=== PATIENT | male | born 1960 | race Caucasian/White ===

== ENCOUNTER 2016-12-03 04:38 | Emergency (ER) | payer BC ==
[~2016-12-03] VITALS: Ht 170.2 cm; Wt 78.0 kg
[~2016-12-03 04:38] MED LIST: LOSARTAN
[2016-12-03 04:44] VITALS: Ht 170.2 cm; Wt 78.0 kg
--- NOTE | 2016-12-03 06:28 | ERD ---
ER Documentation Chief Complaint Date/Time DATE: 12/03/16 TIME: 06:05 Chief Complaint left sided numbness x 3 hours. also c/o body rash HPI 56-year-old male with a history of hypertension, gastritis and hiatal hernia ambulatory to the ED complaining of a 3 day history of intermittent, red, raised , pruritic rash which is worse in the evenings. His been taking Benadryl which relieved the symptoms and he seems to be good during the day but around 5:55 in the evening the symptoms recur. No new antigen exposure. This morning at 2 AM he again began to have the rash and 50-20 minutes after taking Benadryl he began to experience numbness to his left hand and forearm which resolved by the time he arrived in the ED. No headache or neck pain. No other focal weakness or numbness. Denies chest pain or palpitations. No shortness of breath or cough. No abdominal pain, nausea vomiting. No recent travel or ill contacts. No URI symptoms or rhinorrhea. No fevers or chills. ROS All systems reviewed and are negative except as per history of present illness. Medications Home Meds Active Scripts Hydroxyzine Hcl* (Atarax*) 50 Mg Tab, 50 MG PO Q8H Y for ITCHING, #15 TAB Prov:SERGIO DEWEY MD 12/03/16 Prednisone* (Prednisone*) 20 Mg Tab, 40 MG PO DAILY for 3 Days, TAB With food or milk Prov:SERGIO DEWEY MD 12/03/16 Reported Medications [Losartan] No Conflict Check 10/04/16 Allergies Allergies: Coded Allergies: No Known Allergy (Unverified , 12/03/16) PMhx/Soc Reviewed in chart. As per HPI Medical and Surgical Hx: pt denies Surgical Hx History of Surgery: No Anesthesia Reaction: No Hx Neurological Disorder: No Hx Respiratory Disorders: No Hx Cardiac Disorders: Yes (HYPERTENSION) Hx Psychiatric Problems: No Hx Miscellaneous Medical Probl: Yes (Gastritis/GERD, hiatal hernia) Hx Alcohol Use: Yes (ONCE A WEEK) Hx Substance Use: No Hx Tobacco Use: No Smoking Status: Never smoker FmHx No stroke or cancer. Physical Exam Vitals Vital Signs Date Time Temp Pulse Resp B/P Pulse Ox O2 Delivery O2 Flow Rate FiO2 12/03/16 07:29 98.2 72 19 122/74 100 Room Air 2/11/17 05:10 87 18 145/88 100 Room Air 12/03/16 04:44 98.1 101 20 164/90 100 Physical Exam GENERAL: Alert, well-appearing, no acute distress. SKIN: Warm, dry. Light, resolving urticarial rash. No lesions on the hands or feet. No intraoral lesions. No petechiae. No ecchymoses or bruising. HEAD: Atraumatic NECK: Supple, no tenderness, full range of motion. No lymphadenopathy. Carotids 2+ bilaterally without bruits. No stridor. EYES: Pupils are equal, round and reactive to light, extraocular movements are intact, Conjunctiva, not injected, sclera anicteric. ENT: Mucous membranes are moist. Pharynx is clear without erythema or exudate. No uvular lip swelling. No intraoral lesions. CARDIOVASCULAR: Regular rate and rhythm, S1, S2, No murmurs, rubs or gallops. No edema Pulses are 4+ in all extremities. RESPIRATORY: Breath sounds are equal bilaterally. No rales, rhonchi or wheezes. CHEST WALL: No tenderness or deformity. No ecchymosis or bruising GASTROINTESTINAL: Bowel sounds present, nondistended. Soft, nontender, no rebound or guarding. No masses or abnormal pulsations. BACK: No spinal tenderness or paraspinal muscle spasm. No costovertebral angle tenderness. MUSCULOSKELETAL: Normal ROM, no deformity. No calf swelling or tenderness, no edema. No lesions on palms or soles. NEUROLOGIC: Alert and oriented. CN II-XII intact. No focal neurological deficit observed. Normal speech. LYMPHATICS: No lymphadenopathy or lymphedema. PSYCHIATRIC: Cooperative. Appropriate mood and affect. Patient does not appear anxious or depressed. Result Diagram: 12/03/16 0500 12/03/16 0500 Results 24 hrs Laboratory Tests Test 12/03/16 05:00 Alanine Aminotransferase (ALT/SGPT) 36IU/L Albumin 4.1g/dl Albumin/Globulin Ratio 1.20 Alkaline Phosphatase 145IU/L Anion Gap 17 Aspartate Amino Transf (AST/SGOT) 37IU/L Basophils # 0.010^3/ul Basophils % 0.7% Blood Urea Nitrogen 19mg/dl Calcium Level 8.9mg/dl Carbon Dioxide Level 26mmol/L Chloride Level 101mmol/L Creatinine 0.86mg/dl Direct Bilirubin 0.00mg/dl Eosinophils # 0.210^3/ul Eosinophils % 2.7% Globulin 3.40g/dl Glucose Level 104mg/dl Hematocrit 44.9% Hemoglobin 14.9g/dl Indirect Bilirubin 0.0mg/dl Lymphocytes # 2.410^3/ul Lymphocytes % 35.4% Mean Corpuscular Hemoglobin 29.2pg Mean Corpuscular Hemoglobin Concent 33.2g/dl Mean Corpuscular Volume 88.0fl Mean Platelet Volume 9.2fl Monocytes # 0.810^3/ul Monocytes % 11.1% Neutrophils # 3.410^3/ul Neutrophils % 50.1% Nucleated Red Blood Cells # 0.010^3/ul Nucleated Red Blood Cells % 0.0/100WBC Platelet Count 99288^3/UL Potassium Level 4.0mmol/L Red Blood Count 5.1010^6/ul Red Cell Distribution Width 14.1% Sodium Level 140mmol/L Total Bilirubin 0.0mg/dl Total Protein 7.5g/dl White Blood Count 6.810^3/ul Current Medications Medications (Trade) Dose Ordered Sig/Quang Route PRN Reason Start Time Stop Time Status Last Admin Dose Admin Methylprednisolone Sodium Succinate (Solu-Medrol) 125 mg ONCE ONCE IV 12/03/16 07:30 12/03/16 07:31 12/03/16 07:10 EKG: Time: 04:58. Sinus rhythm. Ventricular rate 88, normal DC and QRS intervals. No acute ST segment elevation or depression. No axis deviation or ectopy. EP Impression: Normal EKG IMAGING: PROCEDURE: CT BRAIN WITHOUT CONTRAST CLINICAL INDICATION: 56-year-old male with left-sided weakness. TECHNIQUE: The study was performed utilizing a [employer] VCT 64-slice CT scanner. Direct axial sections were obtained from the foramen magnum to the vertex without the use of intravenous contrast material. Sagittal and coronal reformations were obtained. Automated exposure control and iterative reconstruction techniques were utilized for this examination. The images were viewed on a PACS workstation. CTD/vol = 44.9 mGy; Total Exam DLP = 720.2 mGy- cm. COMPARISON: None. FINDINGS: The ventricles have a normal size, shape and position. There is no evidence for mass effect or midline shift. There are no intracranial areas of abnormal attenuation. There is no evidence for acute intra or extra-axial blood. The bony calvarium is intact. The partially visualized paranasal sinuses and mastoid air cells are without significant abnormal soft tissue. IMPRESSION: Unremarkable noncontrast CT scan of the brain. .Brayden Rivera MD, MD Date Time Electronically viewed and signed by .Brayden Rivera MD, on 12/03/2016 07:03 .M/ Procedures/MDM DOCUMENTS REVIEWED: ED nurse, prior records. REEXAMINATION/REEVALUATION: Time: 07:20. Doing well. Asymptomatic. Rash and paresthesias completely resolved. [employer]-year-old male with a history of hypertension, gastritis and hiatal hernia ambulatory to the ED complaining of a 3 day history of intermittent, red, raised, pruritic rash which is worse in the evenings relieved by Benadryl but this morning began to experience some numbness to his left hand/forearm. Patient been having a urticarial rash secondary to an allergic reaction from an unknown antigen over the last several days. Symptoms have relieved by Benadryl but recurred daily. This morning after taking Benadryl he experienced numbness to his left hand and forearm which resolved by the time he arrived to the ED. No other focal deficits or signs of CVA or TIA. No headache CT of the brain is negative for mass, bleed or infarct. No cardiac dysrhythmia. Pulses are 4+ in all extremities and aortic dissection is unlikely. No signs of steal syndrome. No lymphedema concerns regarding DVT. Stable for discharge with a short course of corticosteroids, nonsedating antihistamines, precautionary instructions and outpatient follow-up as counseled. Counseled patient and family regarding diagnostic workup, diagnosis and need for followup. Understands to return to ED if symptoms recur, worsen or any other concerns. Departure Diagnosis: Primary Impression: Allergic reaction Encounter type: initial encounter Qualified Code: T78.40XA - Allergic reaction, initial encounter Additional Impression: Numbness Condition: Stable Patient Instructions: SERGIO Thomas MD Dec 03, 2016 06:28
[2016-12-03 07:01] LABS: ALBUMIN 4.1 g/dl (3.3-4.9)
--- NOTE | 2016-12-03 07:03 | RADRPT ---
PROCEDURE: CT BRAIN WITHOUT CONTRAST CLINICAL INDICATION: 56-year-old male with left-sided weakness. TECHNIQUE: The study was performed utilizing a [employer] VCT 64-slice CT scanner. Direct axia l sections were obtained from the foramen magnum to the vertex without the use of intravenous contra st material. Sagittal and coronal reformations were obtained. Automated exposure control and iterat jeffrey reconstruction techniques were utilized for this examination. The images were viewed on a PACS workstation. CTD/vol = 44.9 mGy; Total Exam DLP = 720.2 mGy-cm. COMPARISON: None. FINDINGS: The ventricles have a normal size, shape and position. There is no evidence for mass effect or midl ine shift. There are no intracranial areas of abnormal attenuation. There is no evidence for acute intra or extra-axial blood. The bony calvarium is intact. The partially visualized paranasal sinuse s and mastoid air cells are without significant abnormal soft tissue. IMPRESSION: Unremarkable noncontrast CT scan of the brain. .Brayden Rivera MD, Date Time Electronically viewed and signed by .Brayden Rivera MD, on 12/03/2016 07:03 .M/
[2016-12-03 07:04] LABS: BASOPHILS % 0.7 % (0.0-2.0); CREATININE 0.86 mg/dl (0.61-1.24); EOSINOPHILS # 0.2 10^3/ul (0.0-0.5); EOSINOPHILS % 2.7 % (0.0-7.0); HEMATOCRIT 44.9 % (42.0-52.0); HEMOGLOBIN 14.9 g/dl (14.0-18.0); LYMPHOCYTES # 2.4 10^3/ul (0.8-2.9); LYMPHOCYTES % 35.4 % (15.0-51.0); MEAN CORPUSCULAR HEMOGLOBIN 29.2 pg (29.0-33.0); MEAN CORPUSCULAR HGB CONC 33.2 g/dl (32.0-37.0); MEAN PLATELET VOLUME 9.2 fl (7.4-10.4); MONOCYTE # 0.8 10^3/ul (0.3-0.9); MONOCYTES % 11.1 % (0.0-11.0); NEUTROPHIL # 3.4 10^3/ul (1.6-7.5); NEUTROPHILS % 50.1 % (39.0-77.0); PLATELET COUNT 266 10^3/UL (140-440); RED CELL DISTRIBUTION WIDTH 14.1 % (11.5-14.5); UNCORRECTED WBC 6.8 10^3/ul (4.8-10.8); WHITE BLOOD COUNT 6.8 10^3/ul (4.8-10.8)
[2016-12-03 07:05] LABS: ALBUMIN/GLOBULIN RATIO 1.2; CALCIUM 8.9 mg/dl (8.4-10.2); TOTAL PROTEIN 7.5 g/dl (6.1-8.1)
[2016-12-03 07:07] LABS: CONDITION 1
[2016-12-03] MEDS ORDERED: PRED20TA PO (07:16)
[2016-12-03] MEDS ORDERED: HYDR-845 PO (07:16)
[2016-12-03 07:29] VITALS: BP 122/74; PULSE 72; RESP 19; TEMP 98.2
[2016-12-03] MEDS ORDERED: METHYLPREDNISOLONE 125 MG INJ IV ONE (07:30)
== END 2016-12-03 07:29 | disposition home or self-care (01) ==
LOC: E/R 04:38
DX: R21 Rash and other nonspecific skin eruption (principal); I10 Essential (primary) hypertension; R20.0 Anesthesia of skin; T45.0X5A Adverse effect of antiallergic and antiemetic drugs, initial encounter; R40.2142 Coma scale, eyes open, spontaneous, at arrival to emergency department; R40.2252 Coma scale, best verbal response, oriented, at arrival to emergency department
CPT/HCPCS: 70450; 80053; 85025; J2930; 93005; 96374

== ENCOUNTER 2016-12-22 10:17 | Day surgery (SDC) | payer BC ==
[~2016-12-22] VITALS: Ht 170.2 cm; Wt 74.5 kg
[~2016-12-22 10:17] MED LIST changes: +HYDR-845 PO; +PRED20TA PO
[2016-12-22 11:01] VITALS: Ht 170.2 cm; Wt 74.5 kg
[2016-12-22] MEDS ORDERED: LOSA25TA5 PO (11:08)
[2016-12-22 11:24] VITALS: BP 137/79; PULSE 72; RESP 18
[2016-12-22] MEDS ORDERED: FENTAnyl 50 MCG/ML VIAL ONE (11:58)
[2016-12-22] MEDS ORDERED: MIDAZOLAM 1 MG/ML 2 ML INJ ONE ×2 (11:58)
--- NOTE | 2016-12-22 12:10 | GILP ---
DATE OF PROCEDURE: NAME OF PROCEDURES: Colonoscopy and biopsy. SURGEON: Kaiser Lowe MD PREOPERATIVE DIAGNOSIS: Screening colonoscopy. POSTOPERATIVE DIAGNOSES: 1. Colonoscopy all the way to the cecum. 2. Two small rectal polyps were removed using the biopsy forceps. 3. Internal hemorrhoids. INDICATION FOR THE PROCEDURE: Mr. Lilliam Muñoz is a 56-year-old male patient who was scheduled fo r screening colonoscopy. The procedure and possible complications were well explained to the patient. The patient understood and consented to the procedure. DESCRIPTION OF PROCEDURE: Under the influence of fentanyl and Versed the colonoscope was carefully introduced in the rectum and under direct vision it was advanced all the way to the cecum. FINDINGS: The patient had 2 small rectal polyps and they were removed using the biopsy forceps. Th e patient was noted to have internal hemorrhoids. He tolerated the procedure very well and there was no complication from the procedure. At the end o f the procedure, he was awake with stable vital signs and he was discharged home to the care of his family. IMPRESSION: 1. Colonoscopy all the way to the cecum. 2. Two small rectal polyps were removed using the biopsy forceps. 3. Internal hemorrhoids. PLAN: Next screening colonoscopy in 10 years. Dictated By: [facility] Conf#: [id number] DID#: [id number]
[2016-12-22 12:15] VITALS: BP 109/74; RESP 20
== END 2016-12-22 15:24 | disposition home or self-care (01) ==
LOC: GIL 10:17
PROVIDERS: ATTEND Internal Medicine Gastroenterology
DX: Z12.11 Encounter for screening for malignant neoplasm of colon (principal); D12.7 Benign neoplasm of rectosigmoid junction; K64.8 Other hemorrhoids; I10 Essential (primary) hypertension
CPT/HCPCS: 45380; 88305; J2250; J3010; Z7610